=== PATIENT | male | born 1960 ===

== ENCOUNTER 2017-08-19 07:50 | Day surgery (SDC) | payer OTHER ==
[2017-08-19] MEDS ORDERED: Lactated Ringer's 500 ML IV ONE (08:21)
[2017-08-19 08:35] VITALS: O2SAT 100
[2017-08-19] MEDS ORDERED: Propofol 10 mg/ml Inj (20 ML) ONE (09:36)
[2017-08-19] MEDS ORDERED: Midazolam 2 MG/2 ML VIAL ONE (09:36)
[2017-08-19 10:16] VITALS: PULSE 48; TEMP 97
[2017-08-19 10:32] VITALS: BP 121/76; RESP 16
== END 2017-08-19 11:30 | disposition home or self-care (01) ==
LOC: H.ENDO 07:50
PROVIDERS: ATTEND Internal Medicine Gastroenterology
DX: K52.9 Noninfective gastroenteritis and colitis, unspecified (principal); K64.8 Other hemorrhoids
CPT/HCPCS: 45380; 88305; J2250; J2704; J7120